=== PATIENT | male | born 1975 | race Caucasian/White ===

== ENCOUNTER 2017-05-25 23:09 | Emergency (ER) | payer OTHER, BC ==
[~2017-05-25] VITALS: Ht 177.8 cm; Wt 85.0 kg
[~2017-05-25 23:09] MED LIST: ASPI81TA23 PO; BACL10TA PO; CLON0.1T PO
[2017-05-25 23:21] VITALS: BP 139/98; PULSE 103; RESP 16; TEMP 98.3; O2SAT 98
[2017-05-25] MEDS ORDERED: NIFE10CA PO (23:29)
[2017-05-25] MEDS ORDERED: AMIT10TA6 PO (23:29)
[2017-05-25 23:46] LABS: AUTOMATED NEUTROPHIL # 3.9 TH/MM3 (1.8-7.7); BASOPHIL # 0.1 TH/MM3 (0-0.2); BASOPHIL % 1.8 % (0.0-2.0); EOSINOPHIL # 0.3 TH/MM3 (0-0.4); EOSINOPHIL % 4.9 % (0.0-4.0); HEMATOCRIT 40.8 % (39.0-51.0); HEMOGLOBIN 14.2 GM/DL (13.0-17.0); MEAN CELL VOLUME 95.9 FL (80.0-100.0); MEAN CORPUSCULAR HEMOGLOBIN 33.4 PG (27.0-34.0); MEAN CORPUSCULAR HGB CONC 34.8 % (32.0-36.0); MEAN PLATELET VOLUME 8.2 FL (7.0-11.0); MONO % 9.2 % (0.0-8.0); MONOCYTE # 0.6 TH/MM3 (0-0.9); NEUT % 56.1 % (16.0-70.0); PLATELET COUNT 205 TH/MM3 (150-450); RED BLOOD COUNT 4.25 MIL/MM3 (4.50-5.90); RED CELL DISTRIBUTION WIDTH 13.7 % (11.6-17.2)
[2017-05-26 00:03] LABS: ALBUMIN 4.2 GM/DL (3.4-5.0); ALT (GPT) 25 U/L (12-78); AST (GOT) 24 U/L (15-37); BICARBONATE 24.6 MEQ/L (21.0-32.0); BLOOD UREA NITROGEN 23 MG/DL (7-18); CALCIUM 8.4 MG/DL (8.5-10.1); CHLORIDE 109 MEQ/L (98-107); CREATININE 0.83 MG/DL (0.60-1.30); GLOMERULAR FILTRATION RATE 101 ML/MIN (>89); GLUCOSE,RANDOM 83 MG/DL (74-106); SODIUM (NA) 142 MEQ/L (136-145)
[2017-05-26 00:05] LABS: ALKALINE PHOSPHATASE 61 U/L (45-117); TOTAL BILIRUBIN ADULT 0.3 MG/DL (0.2-1.0); TOTAL PROTEIN 7.3 GM/DL (6.4-8.2)
[2017-05-26 00:07] LABS: ACETAMINOPHEN LESS THAN 2.0 MCG/ML (10.0-30.0)
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
[2017-05-26 00:44] VITALS: BP 136/91; PULSE 90; RESP 16; TEMP 98.6; O2SAT 97
[2017-05-26] MEDS ORDERED: NICOTINE 21 MG/24 HR PATCH T-DERMAL ONE (01:15)
[2017-05-26 02:15] VITALS: BP 111/54; PULSE 75; RESP 16; O2SAT 99
[2017-05-26 06:22] VITALS: BP 154/103; PULSE 80; RESP 16; TEMP 98.6; O2SAT 98
== END 2017-05-26 08:29 | disposition home or self-care (01) ==
LOC: NEPD 23:09 → NEPJ 05-26 08:29
DX: S83.412A Sprain of medial collateral ligament of left knee, initial encounter (principal); F19.129 Other psychoactive substance abuse with intoxication, unspecified; I10 Essential (primary) hypertension; I25.10 Atherosclerotic heart disease of native coronary artery without angina pectoris; I25.2 Old myocardial infarction; F32.9 Major depressive disorder, single episode, unspecified; K21.9 Gastro-esophageal reflux disease without esophagitis; F17.290 Nicotine dependence, other tobacco product, uncomplicated; X58.XXXA Exposure to other specified factors, initial encounter
CPT/HCPCS: 80053; 80307; 85025; 99284